=== PATIENT | female | born 1990 | race American Indian/Alaskan Native ===

== ENCOUNTER 2016-11-25 17:27 | Emergency (ER) | payer SELFPAY ==
[2016-11-25 17:50] VITALS: BP 133/108
== END 2016-11-25 23:30 | disposition left against medical advice (07) ==
LOC: ED 17:27
DX: J02.9 Acute pharyngitis, unspecified (principal); R05 Cough; R51 Headache; R11.2 Nausea with vomiting, unspecified; F17.200 Nicotine dependence, unspecified, uncomplicated; Z53.21 Procedure and treatment not carried out due to patient leaving prior to being seen by health care provider

== ENCOUNTER 2016-11-26 12:30 | Emergency (ER) | payer OTHER ==
[2016-11-26 13:44] LABS: Basophils % (Auto) 0.2 % (0.0-1.8); Eosinophils % (Auto) 0.1 % (0.0-4.3); Hematocrit 48.4 % (30.3-42.9); Hemoglobin 15.7 gm/dl (10.1-14.3); Mean Corpuscular HGB Conc 32 % (30-34); Mean Corpuscular Hemoglobin 29 pg (28-32); Mean Corpuscular Volume 90 fl (79-97); Platelet Count 237 K/mm3 (140-440); Red Cell Distribution Width 13.8 % (13.2-15.2); White Blood Count 6.5 K/mm3 (4.5-11.0)
[2016-11-26 13:58] LABS: Alanine Aminotransferase 13 units/L (7-56); Albumin 4.5 g/dL (3.9-5); Albumin/Globulin Ratio 1.1 %; Alkaline Phosphatase 45 units/L (35-129); Anion Gap 19 mmol/L; BUN/Creatinine Ratio 13.75; Bilirubin,Total 0.5 mg/dL (0.1-1.2); Blood Urea Nitrogen 11 mg/dL (7-17); Calcium 9.4 mg/dL (8.4-10.2); Carbon Dioxide 25 mmol/L (22-30); Chloride 96.4 mmol/L (98-107); Glucose 87 mg/dL (65-100); Lipase 17 units/L (13-60); Potassium 4.1 mmol/L (3.6-5.0); Sodium 136 mmol/L (137-145); Total Protein 8.6 g/dL (6.3-8.2)
[2016-11-26 15:37] LABS: Bilirubin,Urine NEG (Negative); Blood,Urine NEG (Negative); Ketones,Urine NEG (Negative); Leukocyte Esterase,Urine SM (Negative); Mucus,Urine 3+ /HPF; Nitrite,Urine NEG (Negative); WBC,Urine < 1.0 /HPF (0.0-6.0)
[2016-11-26] MEDS ORDERED: TORADOL IM ONE (17:19)
[2016-11-26] MEDS ORDERED: NACL 0.9% 1000 ML 1,000 ML IV ONE (17:19)
[2016-11-26] MEDS ORDERED: ZOFRAN IV ONE ×2 (17:19→17:21)
--- NOTE | 2016-11-26 18:55 | Emergency Department Report ---
ED N/V/D HPI - General Chief complaint: Abdominal Pain Stated complaint: FLU-LIKE SYMPTOMS Time Seen by Provider: 11/26/16 16:45 Source: patient Mode of arrival: Ambulatory Limitations: No Limitations - History of Present Illness Initial comments: Patient presents with body aches, sore throat, cough, vomiting x 2 days, diarrhea x 1 day. Also admits to fever up to 101, chills, headache, painful swallowing and upper abdominal pain. Denies vaginal bleeding, discharge or urinary symptoms. LMP 11/11/16. She has tried theraflu, mucinex and apple cider vinegar. Denies sick contacts. MD complaint: nausea, vomiting, diarrhea, abdominal pain -: days(s) (4) Description of Vomiting: food contents Associated Abdominal Pain: Yes Location: diffuse, epigastric Severity: severe Pain Scale: 10 Quality: aching Consistency: constant Associated Symptoms: myalgias, cough, fever/chills, headaches, loss of appetite , malaise, nausea/vomiting, weakness - Related Data Previous Rx's Medication Instructions Recorded Last Taken Type Acetaminophen/Codeine 1 tab PO Q6H PRN #10 tab 12/05/14 Unknown Rx [Acetaminophen-Codeine #3 TAB] Ondansetron [Zofran Odt] 4 mg PO Q8HR #20 tab.rapdis 12/05/14 Unknown Rx Doxycycline Monohydrate 100 mg PO Q12H #20 capsule 12/11/14 Unknown Rx [Doxycycline Monohydrate CAP] Oxycodone HCl/Acetaminophen 1 each PO Q4H PRN #25 tablet 12/11/14 Unknown Rx [Percocet 10-325 mg] Allergies Allergy/AdvReac Type Severity Reaction Status Date / Time No Known Allergies Allergy Verified 03/10/14 09:41 ED Review of Systems ROS: Stated complaint: FLU-LIKE SYMPTOMS Other details as noted in HPI Constitutional: chills, fever, malaise, weakness Eyes: denies: eye pain, eye discharge, vision change ENT: throat pain, congestion Respiratory: cough. denies: shortness of breath, wheezing Cardiovascular: denies: chest pain, palpitations Gastrointestinal: abdominal pain, nausea, vomiting, diarrhea Genitourinary: denies: urgency, dysuria, discharge Musculoskeletal: as per HPI Skin: denies: rash, lesions Neurological: headache. denies: weakness, paresthesias ED Past Medical Hx - Past Medical History Previous Medical History?: Yes Additional medical history: ovarian cyst - Surgical History Past Surgical History?: Yes Additional Surgical History: ACL right knee - Social History Smoking Status: Current Some Day Smoker Substance Use Type: Alcohol - Medications Home Medications: Home Medications Medication Instructions Recorded Confirmed Last Taken Type Acetaminophen/Codeine 1 tab PO Q6H PRN #10 tab 12/05/14 Unknown Rx [Acetaminophen-Codeine #3 TAB] Ondansetron [Zofran Odt] 4 mg PO Q8HR #20 tab.rapdis 12/05/14 Unknown Rx Doxycycline Monohydrate 100 mg PO Q12H #20 capsule 12/11/14 Unknown Rx [Doxycycline Monohydrate CAP] Oxycodone HCl/Acetaminophen 1 each PO Q4H PRN #25 tablet 12/11/14 Unknown Rx [Percocet 10-325 mg] ED Physical Exam - General Limitations: No Limitations General appearance: alert, in no apparent distress, other (nontoxic but ill appearance) - Head Head exam: Present: atraumatic, normocephalic - Eye Eye exam: Present: normal appearance, PERRL - ENT ENT exam: Present: mucous membranes moist, TM's normal bilaterally - Neck Neck exam: Present: normal inspection, tenderness (anterior), full ROM. Absent : lymphadenopathy - Respiratory Respiratory exam: Present: normal lung sounds bilaterally. Absent: respiratory distress, wheezes, rales, rhonchi, stridor - Cardiovascular Cardiovascular Exam: Present: regular rate, normal rhythm. Absent: systolic murmur, diastolic murmur, rubs, gallop - GI/Abdominal GI/Abdominal exam: Present: soft, tenderness (diffuse, greater in epigastric), normal bowel sounds. Absent: guarding, rebound, rigid - Extremities Exam Extremities exam: Present: normal inspection, full ROM, tenderness (generalized ) - Back Exam Back exam: Present: normal inspection, full ROM, tenderness - Neurological Exam Neurological exam: Present: alert, oriented X3 - Psychiatric Psychiatric exam: Present: normal affect, normal mood - Skin Skin exam: Present: warm, dry, intact, normal color. Absent: rash ED Course Vital Signs 11/26/16 11/26/16 13:19 18:12 Temperature 99.7 F H Pulse Rate 81 Respiratory 20 20 Rate Blood Pressure 112/83 O2 Sat by Pulse 100 Oximetry ED Medical Decision Making - Lab Data Result diagrams: 11/26/16 13:28 11/26/16 13:28 - Medical Decision Making Patient presents with body aches, sore throat, cough, abdominal pain, flulike symptoms, n/v/d for approx 4 days. WBC wnl, still awaiting flu, strep is neg, preg neg. Report given to Jayshree Carson. - Differential Diagnosis flu, uri, gallstone, appendicitis Critical Care Time: No Critical care attestation.: If time is entered above; I have spent that time in minutes in the direct care of this critically ill patient, excluding procedure time. ED Disposition Condition: Stable Instructions: Abdominal Pain (ED) Referrals: PRIMARY CARE, [Primary Care Provider] - 3-5 Days
--- NOTE | 2016-11-26 21:19 | Cat Scan Report ---
FINAL REPORT PROCEDURE: CT ABDOMEN PELVIS W CON TECHNIQUE: Computerized axial tomography of the abdomen and pelvis was performed after the IV injection of iodinated nonionic contrast. HISTORY: RLQ, epigastric pain COMPARISON: CT exam dated December 05, 2014 FINDINGS: Spleen is normal in size. There is a 3 millimeter cyst in the right hepatic lobe. Gallbladder and pancreas appear normal. Adrenal glands and abdominal aorta are normal in size. No renal abnormality is seen. Normal appendix is seen. Multiple follicles are seen in the ovaries. Bladder appears normal. Trace free pelvic fluid is likely physiologic. Mild increased small bowel and colonic air is seen diffusely without bowel dilation. Findings could be from swallowed air. No constipation is seen. IMPRESSION: Mild increased small and large bowel air is seen within nondilated loops. Findings may be from swallowed air. No evidence of appendicitis or bowel obstruction is seen. Increased number of follicles is seen in the ovaries without evidence of ovarian cyst. Consideration should be given to ovarian hyperstimulation syndrome, though.
--- NOTE | 2016-11-26 22:10 | Event Note ---
Date: 11/26/16 Patient is a 26-year-old female who was seen by providerpractitioner Brianda.. Patient was signed off to me pending CT scan. CT of abdomen and pelvis within normal limits. Findings: 3 mm cysts in the right hepatic lobe and increased number folic cues and bilateral ovary without evidence of ovarian cysts. Patient is aware of all the folic is in her ovaries. Patient states she was diagnosed years ago when she was a teenager. Discussed patient to follow-up with [employer] doctor to be managed for the ovarian hyperstimulation syndrome. Discussed the patient also follow-up with work station support specialist investigate hepatic lobe cyst. Patient received nausea medication as well as treatment for gastritis. Patient is in no respiratory or acute distress. Vital signs stable.
[2016-11-26 22:49] VITALS: BP 112/71
== END 2016-11-26 22:49 | disposition home or self-care (01) ==
LOC: ED 12:30
DX: M79.1 Myalgia (principal); J02.9 Acute pharyngitis, unspecified; R05 Cough; R11.10 Vomiting, unspecified; R19.7 Diarrhea, unspecified; F17.200 Nicotine dependence, unspecified, uncomplicated
CPT/HCPCS: 36415; 74177; 80053; 81001; 83690; 84703; 85025; 87116; 87400; 87430; 96372; 96374; 99284; J1885; J2405; J7030; Q9967

== ENCOUNTER 2019-04-03 21:34 | Emergency (ER) | payer OTHER ==
--- NOTE | 2019-04-03 21:41 | Event Note ---
ED Screening Note ED Screening Note: pt states she has right knee pain states she was doing double gambian a hour and a half ago and came down wrong and felt a popping in her right knee has not been ambulatory due to pain states 10 years ago torn her ACL and menicus and had repair LNMP last week This initial assessment/diagnostic orders/clinical plan/treatment(s) is/are subject to change based on patients health status, clinical progression and re- assessment by fellow clinical providers in the ED. Further treatment and workup at subsequent clinical providers discretion. Patient/guardian urged not to elope from the ED as their condition may be serious if not clinically assessed and managed. Initial orders include: XR of the right knee
--- NOTE | 2019-04-03 22:24 | XRay Report ---
PROCEDURE: XR KNEE 3V RT TECHNIQUE: knee radiographs, AP, lateral, and sunrise views. HISTORY: right knee pain COMPARISONS: None FINDINGS: Fracture (s) and/or Dislocation(s): None Alignment: Normal Joint space(s): Mild degree joint effusion is noted Soft tissues: Normal Bone mineralization: Normal Foreign bodies: None There is evidence of prior ACL repair IMPRESSION: No acute abnormality Mild degree joint effusion This document is electronically signed by Juan J Mercer MD., April 03 2019 10:22:13 PM ET
--- NOTE | 2019-04-03 23:13 | Emergency Department Report ---
ED Lower Extremity HPI - General Chief Complaint: Extremity Injury, Lower Stated Complaint: RT KNEE INJURY Time Seen by Provider: 04/03/19 21:38 Source: patient Mode of arrival: Wheelchair Limitations: Physical Limitation - History of Present Illness Initial Comments: Patient is a 28 y/o aaf who presents for right knee pain d, states she was jumpting double anguillan today and felt a pop now unable to bear weight. there is mild swelling no deformity. MD Complaint: knee injury Onset/Timin -: days(s) Injury: Leg: Right Type of Injury: hyperextension Place: home Severity: moderate Severity scale (0 -10): 5 Improves With: nothing Worsens With: weight bearing, movement, palpation Context: jumping Associated Symptoms: snap/pop sensation, swelling, unable to bear weight - Related Data Previous Rx's Medication Instructions Recorded Last Taken Type Acetaminophen/Codeine 1 tab PO Q6H PRN #10 tab 12/05/14 Unknown Rx [Acetaminophen-Codeine #3 TAB] Ondansetron [Zofran Odt] 4 mg PO Q8HR #20 tab.rapdis 12/05/14 Unknown Rx Doxycycline Monohydrate 100 mg PO Q12H #20 capsule 12/11/14 Unknown Rx [Doxycycline Monohydrate CAP] Oxycodone HCl/Acetaminophen 1 each PO Q4H PRN #25 tablet 12/11/14 Unknown Rx [Percocet 10-325 mg] Lansoprazole/Amoxiciln/Clarith 1 each PO BID #1 combo..pkg 11/26/16 Unknown Rx [Prevpac Patient Pack] Metoclopramide [Reglan] 10 mg PO TID #24 tab 11/26/16 Unknown Rx Cyclobenzaprine [Flexeril] 10 mg PO TID PRN #30 tablet 04/03/19 Unknown Rx Menthol/Camphor [[place] 1 applicatio TP QID PRN #1 tube 04/03/19 Unknown Rx Ointment] Naproxen [Naprosyn] 500 mg PO BID PRN #30 tablet 04/03/19 Unknown Rx predniSONE [Deltasone] 40 mg PO QDAY 5 Days #10 tab 04/03/19 Unknown Rx Allergies Allergy/AdvReac Type Severity Reaction Status Date / Time No Known Allergies Allergy Verified 03/10/14 09:41 ED Review of Systems ROS: Stated complaint: RT KNEE INJURY Other details as noted in HPI Constitutional: denies: chills, fever Eyes: denies: eye pain, eye discharge, vision change ENT: denies: ear pain, throat pain Respiratory: denies: cough, shortness of breath, wheezing Cardiovascular: denies: chest pain, palpitations Endocrine: no symptoms reported Gastrointestinal: denies: abdominal pain, nausea, diarrhea Genitourinary: denies: urgency, dysuria, discharge Musculoskeletal: joint swelling, myalgia Skin: denies: rash, lesions Neurological: denies: headache, weakness, numbness, paresthesias, confusion Psychiatric: denies: anxiety, depression Hematological/Lymphatic: denies: easy bleeding, easy bruising ED Past Medical Hx - Past Medical History Previous Medical History?: Yes Additional medical history: ovarian cyst - Surgical History Past Surgical History?: Yes Additional Surgical History: ACL right knee - Social History Smoking Status: Never Smoker Substance Use Type: Marijuana - Medications Home Medications: Home Medications Medication Instructions Recorded Confirmed Last Taken Type Acetaminophen/Codeine 1 tab PO Q6H PRN #10 tab 12/05/14 Unknown Rx [Acetaminophen-Codeine #3 TAB] Ondansetron [Zofran Odt] 4 mg PO Q8HR #20 tab.rapdis 12/05/14 Unknown Rx Doxycycline Monohydrate 100 mg PO Q12H #20 capsule 12/11/14 Unknown Rx [Doxycycline Monohydrate CAP] Oxycodone HCl/Acetaminophen 1 each PO Q4H PRN #25 tablet 12/11/14 Unknown Rx [Percocet 10-325 mg] Lansoprazole/Amoxiciln/Clarith 1 each PO BID #1 combo..pkg 11/26/16 Unknown Rx [Prevpac Patient Pack] Metoclopramide [Reglan] 10 mg PO TID #24 tab 11/26/16 Unknown Rx Cyclobenzaprine [Flexeril] 10 mg PO TID PRN #30 tablet 04/03/19 Unknown Rx Menthol/Camphor [[place] 1 applicatio TP QID PRN #1 tube 04/03/19 Unknown Rx Ointment] Naproxen [Naprosyn] 500 mg PO BID PRN #30 tablet 04/03/19 Unknown Rx predniSONE [Deltasone] 40 mg PO QDAY 5 Days #10 tab 04/03/19 Unknown Rx ED Physical Exam - General Limitations: Physical Limitation General appearance: alert, in no apparent distress - Head Head exam: Present: atraumatic, normocephalic - Eye Eye exam: Present: normal appearance, PERRL, EOMI Pupils: Present: normal accommodation - ENT ENT exam: Present: mucous membranes moist - Neck Neck exam: Present: normal inspection, full ROM. Absent: tenderness, meningis mus, lymphadenopathy, thyromegaly - Respiratory Respiratory exam: Present: normal lung sounds bilaterally. Absent: respiratory distress, wheezes, chest wall tenderness - Cardiovascular Cardiovascular Exam: Present: regular rate, normal rhythm, normal heart sounds. Absent: systolic murmur, diastolic murmur, rubs, gallop - GI/Abdominal GI/Abdominal exam: Present: soft, normal bowel sounds. Absent: distended, tenderness, bruit, hernia - Rectal Rectal exam: Present: deferred - Extremities Exam Extremities exam: Present: tenderness, normal capillary refill, joint swelling. Absent: pedal edema, calf tenderness - Expanded Lower Extremity Exam Right Knee exam: Present: tenderness, swelling, effusion, pain w/ pronation/supination, full knee extension. Absent: abrasion, laceration, ecchymosis, deformity, crepidus, dislocation, erythema, posterior draw sign, pain/laxity with valgus, pain/laxity with varus Lower Leg exam: Present: normal inspection, full ROM. Absent: tenderness Ankle exam: Present: normal inspection, full ROM. Absent: tenderness Foot/Toe exam: Present: normal inspection, full ROM. Absent: tenderness Neuro vascular tendon exam: Absent: pulse deficit, motor deficit, sensory deficit, tendon deficit Gait: Positive: unable to bear weight - Back Exam Back exam: Present: normal inspection, full ROM. Absent: tenderness, CVA tenderness (R), CVA tenderness (L), muscle spasm, paraspinal tenderness, vertebral tenderness, rash noted - Neurological Exam Neurological exam: Present: alert, oriented X3, CN II-XII intact, normal gait, reflexes normal. Absent: motor sensory deficit - Psychiatric Psychiatric exam: Present: normal affect, normal mood - Skin Skin exam: Present: warm, dry, intact, normal color. Absent: rash ED Course Vital Signs 04/03/19 21:38 Temperature 98.4 F Pulse Rate 79 Respiratory 18 Rate Blood Pressure 114/64 O2 Sat by Pulse 100 Oximetry ED Lower Extremity MDM - Radiology Data Radiology results: report reviewed, image reviewed Ordering Physician: JA DIGGS Date of Service: 04/03/19 Procedure(s): XR knee 3V RT Accession Number(s): [id number] cc: JA DIGGS Fluoro Time In Minutes: PROCEDURE: XR KNEE 3V RT TECHNIQUE: knee radiographs, AP, lateral, and sunrise views. HISTORY: right knee pain COMPARISONS: None FINDINGS: Fracture (s) and/or Dislocation(s): None Alignment: Normal Joint space(s): Mild degree joint effusion is noted Soft tissues: Normal Bone mineralization: Normal Foreign bodies: None There is evidence of prior ACL repair IMPRESSION: No acute abnormality Mild degree joint effusion This document is electronically signed by Juan J Mercer MD., April 03 2019 10:22:13 PM ET Transcribed By: [facility] [place] Dictated By: JUAN J MERCER Electronically Authenticated By: JUAN J MERCER Signed Date/Time: 04/03/192223 DD/ 13 TD/TT: 04/03/192213 - Medical Decision Making this is a knee sprain note effusion, plan knee immobilizer, crutches, follow up with ortho in 2 days pt verbalized agreement and understanding of discharge plan. Critical care attestation.: If time is entered above; I have spent that time in minutes in the direct care of this critically ill patient, excluding procedure time. ED Disposition Clinical Impression: Sprain, knee Qualifiers: Encounter type: initial encounter Involved ligament of knee: unspecified ligament Laterality: right Qualified Code(s): S83.91XA - Sprain of unspecified site of right knee, initial encounter Disposition: -01 TO HOME OR SELFCARE Is pt being admited?: No Does the pt Need Aspirin: No Condition: Stable Instructions: Knee Sprain (ED), Knee Immobilizer (ED) Prescriptions: predniSONE [Deltasone] 40 mg PO QDAY 5 Days #10 tab Cyclobenzaprine [Flexeril] 10 mg PO TID PRN #30 tablet PRN Reason: Muscle Spasm Naproxen [Naprosyn] 500 mg PO BID PRN #30 tablet PRN Reason: pain Menthol/Camphor [[place] Ointment] 1 applicatio TP QID PRN #1 tube PRN Reason: pain Referrals: ANNABELLE VILLALTA MD [Staff Physician] - 3-5 Days Forms: Work/School Release Form(ED) Time of Disposition: 23:31
[2019-04-03] MEDS ORDERED: NORCO 5/325 PO ONE (23:28)
[2019-04-04 00:33] VITALS: BP 118/70
== END 2019-04-04 01:20 | disposition home or self-care (01) ==
LOC: ED 21:34
DX: S83.91XA Sprain of unspecified site of right knee, initial encounter (principal); F12.10 Cannabis abuse, uncomplicated; Z98.890 Other specified postprocedural states; X58.XXXA Exposure to other specified factors, initial encounter; Y93.39 Activity, other involving climbing, rappelling and jumping off; Y92.89 Other specified places as the place of occurrence of the external cause; Y99.8 Other external cause status